=== PATIENT | male | born 1935 | race Caucasian/White ===

== ENCOUNTER 2016-06-08 12:06 | Inpatient (IN) | payer MEDICARE, BC ==
--- NOTE | ~2016-06-08 | CO ---
Unit #: [id number] #: [id number] Patient: BEAN SHARIF [id number] [address] [place], [place] [address] [id number] MR#: [id number] NAME: BEAN SHARIF ROOM: 571 Age: 80 Sex: M Admission Date: 06/08/2016 : 1935 Attending Physician: Rubina Coleman M.D. Primary Care Physician: Jagdish Romero M.D. Consultation Date: 06/10/2016 CONSULTATION REPORT REASON FOR CONSULTATION Bilateral carotid stenosis. HISTORY OF PRESENT ILLNESS Mr. Sharif is a 80-year-old gentleman with a history of atrial fibrillation and coronary artery disease, who is at cardiac rehabilitation performing his normal daily exercises, when he passed out and was carried to by the rehabilitation staff and his . When he came to, he was transferred to the emergency room and then admitted to the hospital. He was found during workup to have significant bradycardia likely due to longstanding atrial fibrillation. He was witnessed to have some bladder control loss, but he had no other neurologic deficits upon awakening from his passing out. He reports no change in the ability to use his arms or legs. He reports no unilateral vision loss or difficulty in speaking just before or after the event. He reports no recent strokes; although, he has had a stroke in the past likely due to cardiac source. He reports currently he is being worked up for pacemaker and defibrillator placement and will be transferred to [facility] on 06/11/2016 for that procedure. He currently has no other issues at this time. He has been tolerating his diet and he has not had any palpitations or other episodes of feeling faint or passing out. Ultrasound was performed on 06/09/2016, that identified carotid stenosis in both carotid arteries. PAST MEDICAL HISTORY 1. Coronary artery disease. 2. Atrial fibrillation. 3. Hypertension. 4. Hyperlipidemia. 5. Mild chronic kidney disease. 6. Past history of stroke without residual deficit. PAST SURGICAL HISTORY Coronary artery bypass grafting, cardiac catheterization, right inguinal hernia repair. HOME MEDICATIONS Metoprolol, Prinivil, Ventolin, Nasonex, Coumadin, Lasix, Aldactone, Plavix, aspirin, glyburide, Glucophage, Imdur, and Lanoxin. FAMILY HISTORY Positive for coronary artery disease. ALLERGIES None. Unit #: [id number] #: [id number] Patient: BEAN SHARIF SOCIAL HISTORY He is . Lives with his . He is a nonsmoker and nondrinker. REVIEW OF SYSTEMS Per the HPI. The remainder of a 14-point review of system is negative per questioning. PHYSICAL EXAMINATION VITAL SIGNS: Temperature is 98.3, pulse 65, respirations 15, BP 155/55. GENERAL APPEARANCE: The patient is a well-groomed, well-developed individual appearing his stated age, in no distress. Answering questions appropriately. HEENT: Pupils are equal and reactive to light and accommodation. Extraocular movements are intact. Mucous membranes are moist. No intraoral or intramucosal lesions or infections. NECK: Supple. No JVD. Positive carotid bruits, right louder and harsher than left. No JVD. LUNGS: Clear to auscultation bilaterally. Good air entry throughout. No wheezing or crackles. HEART: S1 and S2. Irregular rate and rhythm. No murmurs. ABDOMEN: Soft, nontender, and nondistended. Positive bowel sounds throughout. No abdominal masses or hernias are noted. VASCULAR: Positive radial and femoral pulses bilateral. Popliteal and pedal pulses are not palpable. LYMPHATICS: No lymphadenopathy of the cervical or femoral chain. SKIN: No skin lesions, wound ulcerations, or dermatologic changes noted throughout. MUSCULOSKELETAL: No soft tissue masses or bony deformities. No limb length or limb circumference abnormalities bilaterally. PSYCHIATRIC: Alert and oriented x3. NEUROLOGIC: Cranial nerves 2 through 12 are intact. EXTREMITIES: 5/5 strength in all extremities. Normal strength and sensation in all extremities. DIAGNOSTIC STUDIES IMAGING STUDIES: The patient has bilateral carotid Doppler performed on evening of 2016 reviewed by me personally. This shows elevated velocities in the right internal carotid artery of 320 and 382 cm/second consistent with greater than 70% stenosis with heavy plaque burden noted. The left internal carotid artery has plaque with mildly elevated velocities of about 140 cm/second consistent with 50% to 69% stenosis of the left internal carotid artery. IMPRESSION AND PLAN Mr. Bean Sharif with asymptomatic high-grade right carotid stenosis and moderate left carotid stenosis. Mr. Sharif was told based on current evaluation that he would be recommended a right carotid endarterectomy in the future and if possible, we would like to confirm the stenosis and identify the anatomy of the carotid arteries with a CTA sometime after his pacemaker has been placed. If we are unable to perform the CAT scan due to lab work showing his renal function to depressed, we could then perform surgery which was the ultrasound findings. We will continue to follow him while at [facility]. [facility] and then when he is transferred to [facility] as well. He will continue on his current medications including his anti-platelet therapy. Should there be any problems or concerns while he is in the hospital at either [facility]. Unit #: [id number] #: [id number] Patient: BEAN SHARIF or [facility], we would be happy to see him if needed, but we will continue to follow on a daily basis. He had the remainder of his questions answered to his satisfaction and is agreeable with the plan. Thank you for having us see Mr. Sharif. If you have any questions, do not hesitate to contact me. Dictated by... Autumn Brennan/johan TD: 06/10/2016 14:21 JOB #: [id number] CONSULTATION REPORT X Sabrina Hernandez MD X CONSULTATION REPORT
--- NOTE | ~2016-06-08 | EKG ---
PATIENT: SEBLE MINOR UNIT #: [id number] Ventricular Rate: 58 BPM Atrial Rate: 59 BPM QRS Duration: 160 ms Q-T Interval: 430 ms QTC Calculation(Bezet): 422 ms Calculated R [place]: -22 degrees Calculated T [place]: 152 degrees Diagnosis Line: Atrial fibrillation with slow ventricular response Diagnosis Line: Left bundle branch block Diagnosis Line: Abnormal ECG Diagnosis Line: When compared with ECG of 20-SEP-2015 15:01, Diagnosis Line: No significant change was found Diagnosis Line: Confirmed by ALEJANDRO CHANDLER MD ([id number]) on 06/09/2016 Diagnosis Line: 7:49:38 AM INTERPRETING MD: GERALDINE AHUMADA
--- NOTE | ~2016-06-08 | CR72 ---
[facility] A Service of [facility] RADIOLOGY TEXT RESULTS PATIENT: SEBLE MINOR LOCATION: CEDOF : 36 UNIT #: [id number] AGE: [address]: Rubina Coleman MD SEX: M ORDER DR: [id number] [facility] [address] [facility] [address]. [place], [place] [address] [id number] MR#: [id number] Acc #: [id number] NAME: SEBLE MINOR : 1935 SEX: M STUDY DATE/TIME: 06/08/2016 UNIT: CEDOF ROOM: 87286 STUDY DESCRIPTION: CR Chest Single View Portable Attending Physician: Rubina Coleman M.D. Ordering Physician: Dmitry Crespo M.D. Primary Care Physician: Jagdish Romero M.D. MEDICAL IMAGING REPORT This report is preliminary unless electronic signature is present EXAM Chest, portable, 06/08/2016, 1150 hours. HISTORY 80-year-old man experienced syncopal episode while exercising at exercise facility. Short of air. Prior history of CHF. COMPARISON STUDIES 09/20/2015 FINDINGS Portable upright chest demonstrates median sternotomy change with stable normal heart size. There is no definite pulmonary venous distention. The interstitial markings are minimally increased over the prior study. No definite edema, effusion, or pneumothorax. IMPRESSION Median sternotomy change with stable normal heart size. There is no definite pulmonary venous distention. The interstitial markings are minimally increased from 09/20/2015, without definite edema, effusion, or pneumothorax. Dictated by... Arely Weaver M.D. THIS IS AN ELECTRONICALLY VERIFIED REPORT Arely Weaver M.D. at 06/08/2016 6:17 PM SALINAS/kingsley TD: 06/08/2016 16:20 JOB #: [id number] [facility] A Service [facility] RADIOLOGY TEXT RESULTS PATIENT: SEBLE MINOR LOCATION: CEDOF : 36 UNIT #: [id number] AGE: [address]: Rubina Coleman MD SEX: M ORDER DR: MEDICAL IMAGING REPORT COPY
--- NOTE | ~2016-06-08 | HP ---
Unit #: [id number] #: [id number] Patient: SEBLE MINOR [id number] [facility]. [place] [id number] [facility]. [place], [place] [address] [id number] MR#: [id number] NAME: SEBLE MINOR ROOM: 571 Age: 80 Sex: M Admission Date: 06/08/2016 : 1935 Attending Physician: Rubina Coleman M.D. Primary Care Physician: Jagdish Romero M.D. HISTORY AND PHYSICAL HISTORY OF PRESENT ILLNESS This is a very pleasant 80-year-old male who is well known to Dr. Longo. He has a prior history of coronary artery disease with [place] in the past. The patient reports he has multiple stents placed. He believes five or six. In 2007, the patient underwent coronary artery bypass graft x3. Last cardiac catheterization, per Dr. Longo in 2013, showed 50% in-stent stenosis to the proximal LAD with a patent SUAREZ to the LAD, 99% stenosis left circumflex marginal branch, 90% in-stent stenosis with occluded graft to the marginal branch of the circumflex, 50% in-stent stenosis to the mid circumflex, 30% in-stent stenosis of the RCA mid with a patent saphenous vein graft to the RCA. LVEF at that time was 30%. At that time, he underwent angioplasty and stent placement to the first marginal branch of the circumflex. The patient did have a 2D echocardiogram performed on 09/22/2015 which at that time showed an LVEF of 15% to 20%, mild concentric LVH, anterior septal wall akinesis, moderate dilated left atrium, [id number]-[id number] MR and mild tricuspid regurgitation. The patient reports he had been in his normal state of health. He was at the hospital today in the rehab facility, at cardiac rehab, doing his typical regimen. He states he had been exercising approximately 30 minutes on the treadmill followed by 15 minutes on the elliptical and 15 on the stationary bicycle. He states he had done fine, he had gotten up, gone to his class when he suddenly began to feel funny. He states it started with seeing circles and then he passed out. A MET team was called. The patient's is currently at bedside and said he did lose bladder control but there were no symptoms of seizure-like activity. She reports apparently he was only out according to the staff for a few seconds and that when they were loading him up on the stretcher to bring him to the hospital, he had resumed consciousness. On arrival to the emergency room, the patient was noted to be in atrial fibrillation which for him is permanent and not new. He has been on chronic anticoagulation with Coumadin. However, he does have a slow ventricular rate. Heart rate was as low as 35, at present it is running in the 40-50 range. His blood pressure is stable. Blood pressure is currently running 130s over 70s. Initial EKG shows atrial fibrillation with slow ventricular response, rate of 58 beats per minute. Left bundle branch block is present, this is not new. QTC interval 422 msec. No acute ischemic changes noted. The patient denies any complaints of chest pain, shortness of breath or palpitations. He reports this is the first time this has ever occurred. Unit #: [id number] #: [id number] Patient: SEBLE MINOR At present, he is resting in bed and he appears comfortable. He is in no acute distress. His is present at bedside. PAST MEDICAL HISTORY 1. Known coronary artery disease, status post cardiac catheterization 12/30/[address] Longo that revealed left main normal, left circumflex medium caliber nondominant vessel with a stent in the proximal circumflex with 50% in-stent stenosis, first marginal branch shows presence of a stent with in-stent stenosis of 90% followed by a second 99% stenosis in the mid segment of the marginal branch, there was an occluded graft to the mid marginal branch. LAD artery with proximal stenosis, 50%. Patent SUAREZ to the LAD. Saphenous vein graft to the circumflex was occluded. Right coronary artery, large caliber, dominant vessel with the presence of an intracoronary stent with 30% stenosis. PDA and PLV branches are normal. Saphenous vein graft to the right coronary artery is patent. Ejection fraction at that time was 25% to 30%. No mitral regurgitation. Pulmonary artery pressure is 43/21 with a mean of 31 mmHg. Pulmonary capillary wedge pressure was V-wave 27 with a mean pressure of 25. 2. 2D echocardiogram performed 09/22/2015 shows LVEF of 15% to 20%, mild concentric LVH, anteroseptal wall akinesis, moderate dilation of the left atrium, [id number] MR, mild TR. No evidence of pericardial effusion. 3. Ischemic cardiomyopathy. 4. Chronic systolic heart failure. 5. Left bundle branch block which has been present, this is not new. 6. Permanent atrial fibrillation on anticoagulation with Coumadin. 7. Hypertension. 8. Hyperlipidemia. 9. Chronic kidney disease. 10. History of CVA with no residual. 11. Nonsmoker. PAST SURGICAL HISTORY 1. Coronary artery bypass graft times 3 in 2007. 2. Cardiac catheterization with multiple stents, most recent being [address] Longo. At that time, he had a stent placed to the marginal left circumference in the first marginal branch and balloon dilation only of the mid circumflex artery. 3. Inguinal hernia repair. 4. Cataract extraction. HOME MEDICATIONS 1. Metoprolol tartrate 25 mg p.o. t.i.d. 2. Prinivil 10 mg p.o. daily. 3. Ventolin two puffs inhalation q.6 h. p.r.n. 4. Nasonex one spray nasally b.i.d. 5. Coumadin 2.5 mg p.o. daily. 6. K-Dur 20 mEq p.o. daily. 7. Lasix 40 mg p.o. daily. 8. Aldactone 25 mg p.o. daily. 9. Plavix 75 mg p.o. daily. 10. Aspirin 81 mg p.o. daily. 11. Pepcid Complete one p.o. b.i.d. 12. Vitamin D 4000 units p.o. daily. 13. Glyburide 1.25 mg p.o. q.a.m. 14. Glucophage 500 mg p.o. b.i.d. 15. Imdur mononitrate 30 mg p.o. daily. Unit #: [id number] #: [id number] Patient: SEBLE MINOR 16. Lanoxin 0.125 mg p.o. daily. 17. Zyrtec 10 mg p.o. daily. 18. Saw palmetto two tabs p.o. b.i.d. SOCIAL HISTORY The patient is . He lives in a private residence. He denies any tobacco, alcohol or illicit drug use. FAMILY HISTORY Coronary artery disease in his mother and father. REVIEW OF SYSTEMS Negative other than what was stated above in the HPI. PHYSICAL EXAMINATION VITAL SIGNS: Temperature 97.6, respiratory rate 18-20, pulse at lowest was 35, currently running 40s to 60s, blood pressure 132/77. GENERAL: This is a very pleasant 80-year-old male, elderly. He is in no acute distress. NECK: Trachea is midline. No lymphadenopathy, no thyromegaly, no JVD. The patient does have bilateral carotid bruits. LUNGS: Clear to auscultation. Diminished in the bases. No rales, rhonchi, or wheezing. HEART: S1, S2. Mild murmur left sternal border grade 1/6. No rub or click. Irregularly irregular. ABDOMEN: Soft, nontender, nondistended. Bowel sounds are present. EXTREMITIES: Pulses are palpable. Trace pedal edema, no clubbing. NEUROLOGIC: Awake, alert, oriented. He answers questions appropriately. No follows commands with ease. He moves all extremities equally. DIAGNOSTIC STUDIES LABORATORY: Sodium 140, potassium 4.2, chloride 103, CO2 is 28, BUN 28, creatinine 1.7, glucose 143. Hemoglobin 12.4, hematocrit 37.0, WBC 8.2, platelets 172. PT 13.7, INR 1.3. POC troponin so far has 0.05 x1. IMAGING: Chest x-ray shows median sternotomy change with stable heart size. No definite pulmonary venous distention. Interstitial markings are minimally increased from 09/20/2015 without definite edema, effusion or pneumothorax. CARDIOVASCULAR: EKG atrial fibrillation with slow ventricular response, 58 beats per minute, left bundle branch block. QTC interval 422 msec. IMPRESSION 1. Syncope. 2. Permanent atrial fibrillation with slow ventricular response. 3. Left bundle branch block, this is not new. 4. Bradycardia. 5. Tachy-yasmine syndrome. 6. Bilateral carotid bruits. 7. Known coronary artery disease. 8. History of coronary artery bypass graft times 3 in 2007. 9. Chronic kidney disease. 10. Ischemic cardiomyopathy. 11. Systolic congestive heart failure, last known EF was 15% to 20% per 2D echo in August 2015. 12. Hypertension. 13. Hyperlipidemia. Unit #: [id number] #: [id number] Patient: SEBLE MINOR 14. Diabetes mellitus. PLAN 1. The patient has been admitted to our service secondary to syncope as well as atrial fibrillation with slow ventricular response. All rate-related medication at this time will be discontinued. He is currently on metoprolol and digoxin. These have been discontinued. Will get STAT digoxin level as well as a TSH to blood in lab. Will trend cardiac enzymes. Initial cardiac enzymes x1 have been negative. The patient does have bilateral carotid bruits as well as a soft murmur. Will get bilateral carotid ultrasound to evaluate for any carotid artery stenosis. He will also have orthostatics done secondary to his syncopal episode. 2. Will start aspirin 81 mg p.o. daily. 3. At present, his furosemide, Aldactone, and Prinivil have been discontinued secondary to his kidney function. His Coumadin will also be placed on hold; however, at present it is subtherapeutic with an INR of 1.3. He states he has been taking his medications as directed. He will be started on Lovenox 1 mg/kg subcu daily secondary to his renal dysfunction. 4. Will check EKG in the a.m. 5. Due to the fact that patient has had syncopal episode, also he most likely has tachy-yasmine syndrome and severely decreased left ventricular systolic function with an EF of 15% to 20%, it was recommended that the patient be evaluated for AICD and pacemaker. Dr. Coleman has spoken with Dr. Vasquez and we have also discussed this with the patient and he is willing and agreeable. For now, will continue Lovenox. Again, hold his Coumadin and plan on potential transfer to [facility] for AICD permanent pacemaker placement the beginning of next week. 6. Will await carotid ultrasound results as well. Dictated by Mohinder Payan M.D. LMW/usha TD: 06/08/2016 21:07 JOB #: [id number] HISTORY AND PHYSICAL X Sasha Sweet APRN HISTORY AND PHYSICAL
--- NOTE | ~2016-06-08 | EKG ---
PATIENT: SEBLE MINOR UNIT #: [id number] Ventricular Rate: 74 BPM Atrial Rate: 241 BPM QRS Duration: 158 ms Q-T Interval: 416 ms QTC Calculation(Bezet): 461 ms Calculated R [place]: -35 degrees Calculated T [place]: 144 degrees Diagnosis Line: Atrial fibrillation Diagnosis Line: Left axis deviation Diagnosis Line: Left bundle branch block Diagnosis Line: Abnormal ECG Diagnosis Line: When compared with ECG of 09-JUN-2016 06:53, Diagnosis Line: No significant change was found Diagnosis Line: Confirmed by ALEJANDRO CHANDLER MD ([id number]) on 06/12/2016 Diagnosis Line: 4:43:38 AM INTERPRETING MD: GERALDINE AHUMADA
--- NOTE | ~2016-06-08 | DS ---
Unit #: [id number] #: [id number] Patient: SEBLE MINOR [id number] [facility]. [place] [id number] [facility]. [place], [place] [address] [id number] I MR#: [id number] NAME: SEBLE MINOR ROOM: 571 Age: 80 Sex: M Admission Date: 06/08/2016 : 1935 Discharge Date: 06/11/2016 Attending Physician: Rubina Coleman M.D. Primary Care Physician: Jagdish Romero M.D. DISCHARGE SUMMARY HISTORY OF PRESENT ILLNESS The patient has a previous medical history of coronary artery disease, status post [place], stenting in the past in 2004 and also in 2013, last in 2013. He also had a three-vessel CABG in 2007. He has hypertension, hyperlipidemia, diabetic, history of some systolic CHF, left bundle branch block, permanent atrial fibrillation on Coumadin, chronic kidney disease, and history of CVA. Last 2D echocardiogram on September 22, 2015, showed his LV function was severely reduced to an EF with 15% to 20%. He presented to the hospital with syncope and in permanent atrial fibrillation. He does have a left bundle branch block and asymptomatic bradycardia. He has tachy/yasmine syndrome, was found to have bilateral carotid bruits with and on carotid ultrasound found to have stenosis greater than 70% to the AYALA and 50% to 69% in the LICA. Vascular has been consulted. He has had a history of a stroke without residual deficits in the past. HOSPITAL COURSE The patient is a 80-year-old male. He had been doing quite well with permanent atrial fibrillation and history of coronary artery disease. He was actually at cardiac rehab when he had his initial episode of syncope. He was found to be bradycardic and on examination found to have carotid bruits. He was admitted and had a carotid Doppler ultrasound which was positive for bilateral carotid stenosis. DISCHARGE DIAGNOSES 1. Permanent atrial fibrillation with left bundle branch block and left axis deviation managed on Coumadin which has been held during hospitalization for automated implantable cardioverter defibrillator implantation. 2. Syncope. 3. Severely reduced left ventricular function of 15% to 20% with ccgn-[id number] mitral regurgitation. 4. Bilateral carotid disease. 5. History of coronary artery disease, status post multiple cardiac stents and bypass surgery. Last stent was placed in 2013. 6. Hypertension. 7. Hyperlipidemia. 8. Diabetes. CONSULT Vascular, Dr. Hernandez. DIAGNOSTIC STUDIES LABORATORY: Laboratory testing on June 11, 2016: His sodium was 140, potassium 3.7, chloride 104, CO2 of 26, BUN 27, creatinine 1.5, glucose Unit #: [id number] #: [id number] Patient: SEBLE MINOR 127, magnesium 1.9. WBC 9.5, platelets 195,000, hemoglobin 13.6, hematocrit 39.5. Also please note, he had orthostatic vital signs done. Lying his heart rate was 62, his blood pressure was 146/77. Sitting his heart rate was 56 and his blood pressure was 173/56. Standing his heart rate was 61 and his blood pressure was 160/60. IMAGING: Chest x-ray on June 08, 2016, showed median sternotomy changes with stable normal heart size. No evidence of pulmonary venous distention. The interstitial markings were minimally increased from last x-ray done on September 20, 2015, without definite edema, effusion, or pneumothorax noted. On June 08, 2016, he had a bilateral carotid Doppler. He had elevated velocities in the right internal carotid artery of 320 and 382 cm per second consistent with greater than 70% stenosis with heavy plaque burden noted. The left internal carotid artery had plaque with mildly elevated velocities of about 140 cm per second which is consistent with 50% to 69% stenosis of the left internal carotid artery. CARDIOVASCULAR: EKGs were done, last on June 11, 2016, which was unchanged from previous EKGs. He is in permanent atrial fibrillation, rate of 74 beats per minute with a left axis deviation and left bundle branch block. DISCHARGE MEDICATIONS 1. Albuterol two puffs every six hours as needed for shortness of air. 2. Acetaminophen 325 mg two tablets every six hours as needed for pain. 3. Flonase 16 g one spray nasally daily. 4. Zofran 4 mg every six hours as needed for nausea and vomiting. 5. Loratadine 10 mg daily. 6. NovoLog sliding scale insulin low dose. 7. Famotidine 20 mg daily. 8. Aspirin 81 daily. 9. Plavix 75 daily. 10. Potassium 20 mEq daily. 11. Sodium chloride 1 mL for IV maintenance flush as needed. 12. Glyburide 1.25 mg daily before breakfast. 13. Imdur 30 mg daily. 14. Vitamin D 4000 units daily. PLAN He will be discharged from [facility] and transferred to [facility] per Dr. Vasquez for an AICD to be implanted today after 3:30. Vascular department has seen him today and was notified to continue services after transferring to [facility]. PHYSICAL EXAMINATION GENERAL: On physical exam, the patient appears in no acute distress. He is laying in bed. His family is present at bedside. They had no questions for me. Neurally, he is awake, alert, and oriented with no focal deficits. NECK: Supple with no JVD noted. He has positive bilateral bruits noted. HEART: Irregularly irregular rhythm. No murmurs, gallops, or rubs. LUNGS: His lungs were clear to auscultate with poor inspiratory effort. ABDOMEN: Soft, nontender with positive bowel sounds. EXTREMITIES: Show no edema with chronic hyperpigmentation to the bilateral lower extremities. SKIN: Warm and dry. Unit #: [id number] #: [id number] Patient: SEBLE MINOR The patient is stable and deemed appropriate for transfer to [facility]. He will be going with EMS and will have an AICD implanted later today. Dictated by... Tiana Malik APRN for Autumn Morales TD: 06/11/2016 11:21 JOB #: [id number] DISCHARGE SUMMARY X X DISCHARGE SUMMARY
--- NOTE | ~2016-06-08 | EKG ---
PATIENT: SEBLE MINOR UNIT #: [id number] Ventricular Rate: 62 BPM Atrial Rate: 60 BPM QRS Duration: 154 ms Q-T Interval: 456 ms QTC Calculation(Bezet): 462 ms Calculated R Brooks: -31 degrees Calculated T Brooks: 161 degrees Diagnosis Line: Atrial fibrillation Diagnosis Line: Left axis deviation Diagnosis Line: Left bundle branch block Diagnosis Line: Abnormal ECG Diagnosis Line: When compared with ECG of 08-JUN-2016 11:33, Diagnosis Line: (unconfirmed) Diagnosis Line: No significant change was found Diagnosis Line: Confirmed by ALEJANDRO CHANDLER MD ([id number]) on 06/09/2016 Diagnosis Line: 7:57:11 AM INTERPRETING MD: GERALDINE AHUMADA
[~2016-06-08 12:06] MED LIST: ACETAMINOPHEN PO; ALBUTEROL17 GM INH; ALDACTONE PO; ALDACTONE25 MG PO; ANDROGEL2.5 GM TOP; ASPIRIN EC81 M1 PO; ASPIRIN PO; ASPIRIN81 M1 PO; ASPIRIN81 M2 PO; ASPIRIN81 MG PO; CERTAGEN PO; CLOPIDOGREL75 MG PO; COMBIVENT INH14.7 GM INH; COUMADIN PO; COUMADIN2.5 MG PO; COUMADIN5 MG PO; DIGOX0.125 MG PO; DIGOXIN125 MCG PO; FAMOTIDINE PO; FISH OIL 1,0001 CAP PO; FISH OIL300 MG PO; GLUCOPHAGE500 M1 PO; GLYBURIDE1.25 MG PO; K-DUR20 ME1 PO; K-TAB ER20 MEQ PO; L-CARNITINE500 MG PO; LANOXIN PO; LANOXIN125 MCG PO; LASIX PO; LATANOPROST2.5 ML OU; LISINOPRIL PO; LISINOPRIL10 MG PO; LISINOPRIL5 MG PO; LOPRESSOR PO; MAGNESIUM500 MG PO; METOPROLOL TART25 MG PO; NASONEX17 GM; NIASPAN PO; NITROGYLCERIN SUBLINGUAL; PEPCID COMPLET1 EAC1 PO; PEPCID COMPLET1 EACH PO; PEPCID COMPLETE PO; PEPCID40 MG PO; PLAVIX PO; PRINIVIL10 MG PO; SAW PALMETO PO; SAW PALMETTO PO; SAW PALMETTO160 MG PO; SAW PALMETTO450 MG PO; TOPROL XL 50 MG50 MG PO; VITAMIN D 22000 UNIT PO; VITAMIN D2000 UNIT PO; WARFARIN SODIU2.5 M1 PO; WARFARIN SODIUM2 M1 PO; ZESTRIL5 MG PO; ZYRTEC PO; ZYRTEC10 M2 PO
[2016-06-08 12:31] LABS: POC - CKMB <1.0 ng/mL (0.0-7.9); POC - TROPONIN <0.05 ng/mL (<=0.05)
[2016-06-08 12:38] LABS: BASOPHIL% 0.4 % (0-2.5); DIFF IND NO; EOSINOPHIL# 0.1 X10e3 (0-0.7); EOSINOPHIL% 1.7 % (0.0-7.0); HEMOGLOBIN 12.4 gm/dL (13.0-16.0); LYMPHOCYTE# 0.9 X10e3 (1.0-3.5); LYMPHOCYTE% 11.5 % (17.0-45.0); MEAN CELL VOLUME 91.2 FL (83-96); MEAN CORPUSCULAR HEMOGLOBIN 30.5 PG (28-34); MEAN CORPUSCULAR HGB CONC 33.4 g/dL (30-36); MONOCYTE# 0.5 X10e3 (0-1.0); MONOCYTE% 6.3 % (3.0-12.0); NEUTROPHIL# 6.5 X10e3 (1.5-7.1); NEUTROPHIL% 80.1 % (40-75); PLATELET COUNT 172 X10e3 (140-420); RED BLOOD COUNT 4.05 X10e (3.90-5.60); RED CELL DISTRIBUTION WIDTH 13.6 % (11.0-15.5); WHITE BLOOD COUNT 8.2 X10e3 (4.0-10.5)
[2016-06-08 12:41] LABS: URINE SOURCE CLEAN CATCH
[2016-06-08 12:44] LABS: URINE APPEARANCE CLEAR; URINE BILIRUBIN NEG (NEG); URINE BLOOD NEG (NEG); URINE COLOR YELLOW; URINE GLUCOSE NEG (NEG); URINE KETONE NEG (NEG); URINE LEUKOCYTE ESTERASE NEG (NEG); URINE NITRATE NEG (NEG); URINE PROTEIN NEG (NEG); URINE UROBILINOGEN 0.2 MG/DL (NEG)
[2016-06-08 12:50] LABS: CULTURE INDICATED? NO
[2016-06-08 12:51] LABS: INR 1.3
[2016-06-08 12:52] LABS: PROTHROMBIN TIME (PATIENT) 13.7 SECONDS (9.6-11.5)
[2016-06-08 12:58] LABS: ALBUMIN SERUM 3.9 g/dL (3.5-5.0); BILIRUBIN, DIRECT 0.2 mg/dL (0.0-0.2); BILIRUBIN,INDIRECT 0.6 mg/dL (0.0-0.9); BILIRUBIN,TOTAL 0.8 mg/dL (0.2-2.0); BUN/CREATININE RATIO 16.47; CALCIUM SERUM 9.7 mg/dL (8.4-10.2); CREATININE SERUM 1.7 mg/dL (0.6-1.4); GLOM FILT RATE Estimated 41.5 mL/min (>60); POTASSIUM 4.2 mmol/L (3.5-5.1); PROTEIN TOTAL SERUM 6.9 g/dL (6.0-8.3)
[2016-06-08] MEDS ORDERED: IMDUR-ER30 MG PO (14:11)
[2016-06-08] MEDS ORDERED: LANOXIN125 MCG PO (14:12)
[2016-06-08] MEDS ORDERED: ZYRTEC10 M1 PO (14:13)
[2016-06-08] MEDS ORDERED: SAW PALMETTO450 MG PO (14:14)
[2016-06-08 20:44] LABS: CK TOTAL 45 IU/L (36-174)
[2016-06-09 02:52] LABS: CK TOTAL 58 IU/L (36-174)
[2016-06-09 09:44] LABS: BASOPHIL# 0.1 X10e3 (0-0.3); BASOPHIL% 0.6 % (0-2.5); EOSINOPHIL# 0.1 X10e3 (0-0.7); EOSINOPHIL% 0.9 % (0.0-7.0); HEMATOCRIT 38.7 % (38.0-50.0); HEMOGLOBIN 13.1 gm/dL (13.0-16.0); LYMPHOCYTE# 1.3 X10e3 (1.0-3.5); LYMPHOCYTE% 11.9 % (17.0-45.0); MEAN CELL VOLUME 90.5 FL (83-96); MEAN CORPUSCULAR HEMOGLOBIN 30.5 PG (28-34); MEAN CORPUSCULAR HGB CONC 33.7 g/dL (30-36); MEAN PLATELET VOLUME 7.7 FL (6.5-11.5); MONOCYTE# 0.9 X10e3 (0-1.0); NEUTROPHIL# 8.7 X10e3 (1.5-7.1); NEUTROPHIL% 78.6 % (40-75); PLATELET COUNT 189 X10e3 (140-420); RED BLOOD COUNT 4.28 X10e (3.90-5.60); RED CELL DISTRIBUTION WIDTH 13.6 % (11.0-15.5); WHITE BLOOD COUNT 11.1 X10e3 (4.0-10.5)
[2016-06-09 09:45] LABS: DIFF IND NO
[2016-06-09 10:09] LABS: CK TOTAL 58 IU/L (36-174)
[2016-06-09 10:12] LABS: CALCIUM SERUM 9.3 mg/dL (8.4-10.2); CREATININE SERUM 1.4 mg/dL (0.6-1.4); MAGNESIUM 1.8 mg/dL (1.6-3.0); POTASSIUM 4.1 mmol/L (3.5-5.1)
[2016-06-10 05:31] LABS: BASOPHIL# 0.1 X10e3 (0-0.3); BASOPHIL% 0.5 % (0-2.5); DIFF IND NO; EOSINOPHIL# 0.1 X10e3 (0-0.7); EOSINOPHIL% 0.5 % (0.0-7.0); HEMATOCRIT 40.7 % (38.0-50.0); HEMOGLOBIN 13.9 gm/dL (13.0-16.0); LYMPHOCYTE# 1.7 X10e3 (1.0-3.5); LYMPHOCYTE% 13.2 % (17.0-45.0); MEAN CELL VOLUME 89.8 FL (83-96); MEAN CORPUSCULAR HEMOGLOBIN 30.6 PG (28-34); MEAN CORPUSCULAR HGB CONC 34.1 g/dL (30-36); MEAN PLATELET VOLUME 7.8 FL (6.5-11.5); MONOCYTE# 0.8 X10e3 (0-1.0); MONOCYTE% 6.2 % (3.0-12.0); NEUTROPHIL# 10.3 X10e3 (1.5-7.1); NEUTROPHIL% 79.6 % (40-75); PLATELET COUNT 197 X10e3 (140-420); RED BLOOD COUNT 4.54 X10e (3.90-5.60); RED CELL DISTRIBUTION WIDTH 13.7 % (11.0-15.5)
[2016-06-10 05:40] LABS: INR 1.3; PROTHROMBIN TIME (PATIENT) 13.6 SECONDS (9.6-11.5)
[2016-06-10 06:05] LABS: BUN/CREATININE RATIO 17.85; CALCIUM SERUM 9.5 mg/dL (8.4-10.2); CREATININE SERUM 1.4 mg/dL (0.6-1.4); POTASSIUM 4.6 mmol/L (3.5-5.1)
[2016-06-11 08:09] LABS: BASOPHIL# 0.1 X10e3 (0-0.3); BASOPHIL% 0.6 % (0-2.5); EOSINOPHIL# 0.1 X10e3 (0-0.7); EOSINOPHIL% 1.3 % (0.0-7.0); HEMATOCRIT 39.5 % (38.0-50.0); HEMOGLOBIN 13.6 gm/dL (13.0-16.0); LYMPHOCYTE# 2.6 X10e3 (1.0-3.5); LYMPHOCYTE% 27.3 % (17.0-45.0); MEAN CELL VOLUME 89.4 FL (83-96); MEAN CORPUSCULAR HEMOGLOBIN 30.7 PG (28-34); MEAN CORPUSCULAR HGB CONC 34.3 g/dL (30-36); MEAN PLATELET VOLUME 7.8 FL (6.5-11.5); MONOCYTE# 0.8 X10e3 (0-1.0); MONOCYTE% 8.9 % (3.0-12.0); NEUTROPHIL# 5.9 X10e3 (1.5-7.1); NEUTROPHIL% 61.9 % (40-75); PLATELET COUNT 195 X10e3 (140-420); RED BLOOD COUNT 4.42 X10e (3.90-5.60); RED CELL DISTRIBUTION WIDTH 13.8 % (11.0-15.5); WHITE BLOOD COUNT 9.5 X10e3 (4.0-10.5)
[2016-06-11 08:21] LABS: DIFF IND NO
[2016-06-11 08:54] LABS: CALCIUM SERUM 9.3 mg/dL (8.4-10.2); CREATININE SERUM 1.5 mg/dL (0.6-1.4); MAGNESIUM 1.9 mg/dL (1.6-3.0); POTASSIUM 3.7 mmol/L (3.5-5.1)
== END 2016-06-11 13:46 | DRG 309 ==
LOC: CED 12:06 → CEDOF 13:30 → C5C 06-09 16:00
PROVIDERS: Emergency Medicine; Internal Medicine Cardiovascular Disease; Nurse Practitioner
DX: I49.5 Sick sinus syndrome (principal); I13.0 Hypertensive heart and chronic kidney disease with heart failure and stage 1 through stage 4 chronic kidney disease, or unspecified chronic kidney disease; I50.22 Chronic systolic (congestive) heart failure; I48.2 Chronic atrial fibrillation; E11.9 Type 2 diabetes mellitus without complications; I44.7 Left bundle-branch block, unspecified; R09.89 Other specified symptoms and signs involving the circulatory and respiratory systems; I25.10 Atherosclerotic heart disease of native coronary artery without angina pectoris; Z95.1 Presence of aortocoronary bypass graft; E78.5 Hyperlipidemia, unspecified; N18.9 Chronic kidney disease, unspecified; I65.23 Occlusion and stenosis of bilateral carotid arteries; Z98.49 Cataract extraction status, unspecified eye; Z86.73 Personal history of transient ischemic attack (TIA), and cerebral infarction without residual deficits; Z79.01 Long term (current) use of anticoagulants; Z79.02 Long term (current) use of antithrombotics/antiplatelets; Z79.82 Long term (current) use of aspirin; Z79.84 Long term (current) use of oral hypoglycemic drugs
CPT/HCPCS: 36415; 71010; 80048; 80076; 80162; 81003; 82550; 82553; 82947; 83735; 84443; 84484; 85025; 85610; 85730; 93005; 93880; 94640; 94760; 96360; 99285; J1265; J1650; J2405

== ENCOUNTER → 2016-07-03 | Outpatient (CLI) | payer MEDICARE, BC ==
[~2016-07-03] MED LIST changes: +IMDUR-ER30 MG PO; +ZYRTEC10 M1 PO
--- NOTE | ~2016-07-03 | CT23 ---
[facility] A Service of [facility] & [facility] RADIOLOGY TEXT RESULTS PATIENT: SEBLE MINOR [facility]ATION: [facility] : 36 UNIT #: [id number] AGE: [address]: Sabrina Hernandez MD SEX: M ORDER DR: [id number] [facility] [address] [place], [place] [address] [id number] O MR#: [id number] Acc #: [id number] NAME: SEBLE MINOR : 1935 SEX: M STUDY DATE/TIME: 07/03/2016 9:49 UNIT: [facility] ROOM: STUDY DESCRIPTION: CT Angio Neck Attending Physician: Sabrina Hernandez M.D. Referring Physician: Sabrina Hernandez M.D. Ordering Physician: Sabrina Hernandez M.D. Primary Care Physician: Jagdish Romero M.D. MEDICAL IMAGING REPORT This report is preliminary unless electronic signature is present EXAM CT scan of the neck with contrast with carotid CT angiography. HISTORY Bilateral carotid stenosis on recent ultrasound. The patient is asymptomatic. FINDINGS Result text under order number [id number]. Please see this order for result text. Dictated by... Benjamin Michel M.D. THIS IS AN ELECTRONICALLY VERIFIED REPORT Benjamin Michel M.D. at 07/04/2016 4:28 PM ROB/kay TD: 07/04/2016 13:06 JOB #: [id number] MEDICAL IMAGING REPORT Page 1 of 1 COPY
--- NOTE | ~2016-07-03 | CT17 ---
[facility] A Service of [facility] & [facility] RADIOLOGY TEXT RESULTS PATIENT: SEBLE MINOR [facility] UNIT #: [id number] AGE: [address]: Sabrina Hernandez MD SEX: M ORDER DR: [id number] [facility] [address] [place], [place] [address] [id number] O MR#: [id number] Acc #: [id number] NAME: SEBLE MINOR : 1935 SEX: M STUDY DATE/TIME: 07/03/2016 9:49 UNIT: [facility] ROOM: STUDY DESCRIPTION: CT Angio Head Attending Physician: Sabrina Hernandez M.D. Referring Physician: Sabrina Hernandez M.D. Ordering Physician: Sabrina Hernandez M.D. Primary Care Physician: Jagdish Romero M.D. MEDICAL IMAGING REPORT This report is preliminary unless electronic signature is present EXAM CT scan of the head and neck with contrast with carotid CT angiography. HISTORY Bilateral carotid stenosis on recent ultrasound. The patient is asymptomatic. TECHNIQUE Axial imaging was obtained from the mid mediastinum to the top of head with contrast. 100 mL of Isovue was used. CT angiography was performed with thick sliding MIPs, curved planar reformats and 3-D volumetric imaging with surface shaded and volume shaded display. This CT exam was performed with one or more of the following radiation dose reduction techniques: automatic exposure control, adjustment of mA and/or kV according to patient size, and iterative reconstruction. FINDINGS Extravascular structures are remarkable for a small air fluid level in the left maxillary sinus and degenerative changes of the cervical discs and facets. CT angiographic study shows intimal thickening and mild plaque at great vessel origins most prominent at the left subclavian origin. There is no significant stenosis. The CT angiographic study shows occlusion of the left vertebral artery. The right vertebral artery is widely patent with only mild calcified plaques seen near its origin. The distal right vertebral artery into the basilar artery also demonstrates calcified plaque at the skull base with a focal tight stenosis that appears to be in the 50% to 75% range. The basilar artery itself is widely patent. In the carotid circulation, there is mild plaque at the left bifurcation [facility] A Service of [facility] & [facility] RADIOLOGY TEXT RESULTS PATIENT: SEBLE MINOR LOCATION: [facility] : 36 UNIT #: [id number] AGE: [address]: Sabrina Hernandez MD SEX: M ORDER DR: with a 30% stenosis by NASCET criteria. There is more extensive mixed calcified and noncalcified plaque at the right proximal internal carotid artery with a stenosis of 70% by NASCET criteria. Distally, there is plaque in both cervical internal carotid arteries. On the right side, there is diffuse plaque through the siphon without a critical stenosis. On the left side, there is a focal severe stenosis of the internal carotid in its petrous portion. Degree of narrowing appears to be in the 60% to 75% range. In the siphon, there is fairly extensive calcified plaque without critical stenosis. In intracranial circulation there is no evidence of aneurysm, vascular malformation or major branch vessel occlusion. There is mild small vessel atherosclerotic disease seen in the intracranial vessels. There is origin of the right P1 segment as a normal variant. IMPRESSION 1. Severe stenosis, 70% by NASCET criteria, right proximal internal carotid artery. 2. Approximately 60% to 70% stenosis of the left distal internal carotid artery through the skull base in the petrous portion. 3. Occluded left vertebral artery with a severe stenosis of the right vertebral artery at the skull base. The basilar artery is widely patent. 4. 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 Dictated by... Benjamin Michel M.D. THIS IS AN ELECTRONICALLY VERIFIED REPORT Benjamin Michel M.D. at 07/04/2016 4:28 PM ROB/kay TD: 07/04/2016 12:57 JOB #: [id number] MEDICAL IMAGING REPORT Page 1 of 1 COPY
[2016-07-03 09:41] LABS: POC - CREATININE 1.14 mg/dL (0.64-1.27); POC - GFR >60.0 mL/min (>60)
== END | disposition home or self-care (01) ==
LOC: CCAT 08:52
PROVIDERS: Surgery Vascular Surgery
DX: I65.29 Occlusion and stenosis of unspecified carotid artery (principal); I65.23 Occlusion and stenosis of bilateral carotid arteries; I65.02 Occlusion and stenosis of left vertebral artery; J32.0 Chronic maxillary sinusitis
CPT/HCPCS: 70496; 70498; 82565; J7060; Q9967

== ENCOUNTER → 2016-09-18 | Outpatient (CLI) | payer MEDICARE, BC ==
--- NOTE | ~2016-09-18 | US38 ---
[facility] A Service [facility] RADIOLOGY TEXT RESULTS PATIENT: SEBLE MINOR LOCATION: [facility] : 36 UNIT #: [id number] AGE: [address]: Bianca Gillespie SEX: M ORDER DR: [id number] [facility] [address] [place], [place] [address] [id number] O MR#: [id number] Acc #: [id number] NAME: SEBLE MINOR : 1935 SEX: M STUDY DATE/TIME: 09/18/2016 10:24 UNIT: [facility] ROOM: STUDY DESCRIPTION: US Carotid W/Doppler Unilatera Attending Physician: Bianca Gillespie A.P.R.N. Referring Physician: Bianca Gillespie A.P.R.N. Ordering Physician: Bianca Gillespie A.P.R.N. Primary Care Physician: Jagdish Romero M.D. MEDICAL IMAGING REPORT This report is preliminary unless electronic signature is present DATE OF EXAM 09/18/2016 REFERRING PROVIDER Bianca Gillespie TREASURER REASON FOR EXAM Coronary artery disease. Carotid artery disease. EXAM Right carotid Doppler. FINDINGS The right common carotid, internal carotid and external carotids are patent without significant plaque or intimal thickening throughout. Velocity of the common carotid artery is 70 cm/sec. Peak systolic velocity of the right proximal internal carotid artery is 33 cm/sec with an end-diastolic velocity of 9 cm/sec for an ICA:CCA ratio of 0.5. External carotid artery velocity of 389 cm/sec. The vertebral arteries are visualized with antegrade flow. IMPRESSION 1. Normal appearance of the right internal carotid artery without stenosis. 2. Elevated velocities consistent with stenosis of the right external carotid artery. 3. Anterior grade flow of the right vertebral artery. Dictated by... [facility] A Service [facility] RADIOLOGY TEXT RESULTS PATIENT: SEBLE MINOR LOCATION: [facility] : 36 UNIT #: [id number] AGE: [address]: Bianca Gillespie SEX: M ORDER DR: Sabrina Hernandez M.D. THIS IS AN ELECTRONICALLY VERIFIED REPORT Sabrina Hernandez M.D. at 09/24/2016 5:09 PM HAIDER/cornelius TD: 09/19/2016 00:47 JOB #: [id number] MEDICAL IMAGING REPORT Page 1 of 1 COPY
== END | disposition home or self-care (01) ==
LOC: CNIV 09:57
DX: I65.21 Occlusion and stenosis of right carotid artery (principal)
CPT/HCPCS: 93882

== ENCOUNTER 2016-12-12 12:17 | Emergency (ER) | payer MEDICARE, BC ==
[~2016-12-12] VITALS: Ht 175.3 cm; Wt 75.7 kg
--- NOTE | ~2016-12-12 | EKG ---
PATIENT: SEBLE MINOR UNIT #: [id number] Ventricular Rate: 61 BPM Atrial Rate: 60 BPM QRS Duration: 190 ms Q-T Interval: 486 ms QTC Calculation(Bezet): 489 ms Calculated R [place]: -68 degrees Calculated T [place]: 112 degrees Diagnosis Line: Ventricular-paced rhythm Diagnosis Line: Abnormal ECG Diagnosis Line: When compared with ECG of 11-JUN-2016 06:18, Diagnosis Line: Electronic ventricular pacemaker has replaced Diagnosis Line: Atrial fibrillation Diagnosis Line: Confirmed by ALEJANDRO CHANDLER MD ([id number]) on 12/13/2016 Diagnosis Line: 6:05:50 PM INTERPRETING MD: GERALDINE AHUMADA
--- NOTE | ~2016-12-12 | CR72 ---
[facility] A Service of [facility] RADIOLOGY TEXT RESULTS PATIENT: SEBLE MINOR LOCATION: [facility] : 36 UNIT #: [id number] AGE: [address]: Benjamin Gillespie MD SEX: M ORDER DR: [id number] [facility] [address] [place], [place] [address] [id number] E MR#: [id number] Acc #: [id number] NAME: SEBLE MINOR : 1935 SEX: M STUDY DATE/TIME: 12/12/2016 13:00 UNIT: [facility] ROOM: STUDY DESCRIPTION: CR Chest Single View Portable Attending Physician: Benjamin Gillespie M.D. Ordering Physician: Benjamin Gillespie M.D. Primary Care Physician: Jagdish Romero M.D. MEDICAL IMAGING REPORT This report is preliminary unless electronic signature is present EXAM AP portable chest 12/12/2016 at 13:00 HISTORY 81-year-old male with weakness, near-syncope today. Low blood pressure. History of coronary artery disease with stent placement. Diabetes. Asthma. CABG. COMPARISON PA and lateral chest radiograph 07/25/2016. FINDINGS Heart size is within normal limits allowing for slight patient rotation toward the left. CABG changes are present. Pulmonary vascular distribution is normal. Lungs appear free of acute airspace disease. Left chest wall pacemaker and leads appear stable. No pneumothorax. IMPRESSION 1. No acute chest findings. 2. CABG changes. Dictated by... Marjorie Islas M.D. THIS IS AN ELECTRONICALLY VERIFIED REPORT Marjorie Islas M.D. at 12/13/2016 9:40 AM [facility]/bridgett TD: 12/12/2016 14:19 JOB #: [id number] MEDICAL IMAGING REPORT [facility] A Service of [facility] & [facility] RADIOLOGY TEXT RESULTS PATIENT: SEBLE MINOR LOCATION: [facility] : 36 UNIT #: [id number] AGE: [address]: Benjamin Gillespie MD SEX: M ORDER DR: Page 1 of 1 COPY
[2016-12-12 13:15] LABS: BASOPHIL% 0.6 % (0-2.5); EOSINOPHIL# 0.1 X10e3 (0-0.7); EOSINOPHIL% 1.3 % (0.0-7.0); HEMATOCRIT 37.5 % (38.0-50.0); HEMOGLOBIN 12.8 gm/dL (13.0-16.0); LYMPHOCYTE# 0.8 X10e3 (1.0-3.5); LYMPHOCYTE% 12.5 % (17.0-45.0); MEAN CELL VOLUME 90.9 FL (83-96); MEAN CORPUSCULAR HGB CONC 34.1 g/dL (30-36); MEAN PLATELET VOLUME 7.8 FL (6.5-11.5); MONOCYTE# 0.5 X10e3 (0-1.0); MONOCYTE% 7.4 % (3.0-12.0); NEUTROPHIL# 5.2 X10e3 (1.5-7.1); NEUTROPHIL% 78.2 % (40-75); PLATELET COUNT 191 X10e3 (140-420); RED BLOOD COUNT 4.12 X10e (3.90-5.60); RED CELL DISTRIBUTION WIDTH 14.4 % (11.0-15.5); WHITE BLOOD COUNT 6.6 X10e3 (4.0-10.5)
[2016-12-12 13:21] LABS: DIFF IND NO
[2016-12-12 13:29] LABS: INR 1.3; PROTHROMBIN TIME (PATIENT) 14.5 SECONDS (10.0-11.7)
[2016-12-12 13:35] LABS: POC - CKMB 1.4 ng/mL (0.0-7.9); POC - TROPONIN <0.05 ng/mL (<=0.05)
[2016-12-12 13:36] LABS: ALBUMIN SERUM 4.3 g/dL (3.5-5.0); BILIRUBIN, DIRECT 0.2 mg/dL (0.0-0.2); BILIRUBIN,INDIRECT 0.7 mg/dL (0.0-0.9); BILIRUBIN,TOTAL 0.9 mg/dL (0.2-2.0); BUN/CREATININE RATIO 17.22; CALCIUM SERUM 9.4 mg/dL (8.4-10.2); CREATININE SERUM 1.8 mg/dL (0.6-1.4); GLOM FILT RATE Estimated 34.8 mL/min (>60); POTASSIUM 4.1 mmol/L (3.5-5.1); PROTEIN TOTAL SERUM 7.3 g/dL (6.0-8.3)
== END 2016-12-12 14:30 | disposition home or self-care (01) ==
LOC: CED 12:17
PROVIDERS: Emergency Medicine
DX: R55 Syncope and collapse (principal); I11.0 Hypertensive heart disease with heart failure; I50.9 Heart failure, unspecified; E78.5 Hyperlipidemia, unspecified; I48.91 Unspecified atrial fibrillation; Z79.899 Other long term (current) drug therapy
CPT/HCPCS: 36415; 71010; 80048; 80076; 80162; 82553; 83605; 84484; 85025; 85610; 87040; 93005; 99285